=== PATIENT | female | born 1935 | race Caucasian/White ===

== ENCOUNTER 2016-12-04 10:45 | Observation (INO) | payer MEDICARE, BC ==
[~2016-12-04] VITALS: Ht 162.6 cm; Wt 76.8 kg
[~2016-12-04 10:45] MED LIST: COLCRYS0.6 MG PO; D3-5050000 UNIT PO; FERROUS SULFAT325 MG PO; FLAGYL250 MG PO; GLUCOPHAGE 500500 MG PO; HYDRALAZINE HCL50 MG PO; HYDROCHLOROTHIA25 MG PO; LIPITOR80 MG PO; LOPERAMIDE2 M1 PO; LOPRESSOR50 MG PO; MAPAP500 M1 PO; MULTI-DAY VITA1 EACH PO; NEURONTIN 100100 MG PO; VITAMIN D2000 UNI1 PO
[2016-12-04 12:09] LABS: HEMOGLOBIN 11.7 gm/dl (12.3-15.3); RED BLOOD COUNT 4.08 M/UL (4.00-5.10); WHITE BLOOD COUNT 6.2 K/UL (4.5-11.0)
[2016-12-05] MEDS ORDERED: TRAMADOL HCL50 MG PO (09:17)
[2016-12-05] MEDS ORDERED: COLCHICINE 0.60.6 MG PO (09:19)
[2016-12-06] MEDS ORDERED: LIPITOR TAB 2020 MG PO (09:40)
[2016-12-06] MEDS ORDERED: ELIQUIS2.5 MG PO (09:40)
[2016-12-06] MEDS ORDERED: ANTIVERT 12.512.5 MG PO (09:40)
[2016-12-06] MEDS ORDERED: BAYER CHEWABLE81 MG PO (09:41)
== END 2016-12-06 12:50 | disposition home or self-care (01) ==
LOC: ER1 10:45 → M/S 23:00 → ZEROF 23:00 → M/S 23:00
PROVIDERS: Emergency Medicine; Psychiatry & Neurology Neurology; ADMIT Internal Medicine
DX: H53.139 Sudden visual loss, unspecified eye (principal); R42 Dizziness and giddiness; I48.0 Paroxysmal atrial fibrillation; E11.22 Type 2 diabetes mellitus with diabetic chronic kidney disease; I13.0 Hypertensive heart and chronic kidney disease with heart failure and stage 1 through stage 4 chronic kidney disease, or unspecified chronic kidney disease; N18.3 Chronic kidney disease, stage 3 (moderate); I50.32 Chronic diastolic (congestive) heart failure; I27.2 Other secondary pulmonary hypertension; Z85.42 Personal history of malignant neoplasm of other parts of uterus; Z85.828 Personal history of other malignant neoplasm of skin; Z87.39 Personal history of other diseases of the musculoskeletal system and connective tissue; Z87.891 Personal history of nicotine dependence; Z88.0 Allergy status to penicillin; Z88.7 Allergy status to serum and vaccine; Z79.01 Long term (current) use of anticoagulants; Z79.82 Long term (current) use of aspirin; Z79.899 Other long term (current) drug therapy; Z90.710 Acquired absence of both cervix and uterus; Z95.0 Presence of cardiac pacemaker; Z98.49 Cataract extraction status, unspecified eye; Z98.890 Other specified postprocedural states
CPT/HCPCS: ECHO; 36415; 70450; 71010; 80048; 80053; 80061; 81001; 82550; 82553; 82803; 82962; 83036; 83874; 84443; 84484; 85025; 87086; 93005; 93306; 93880; 96372; 96374; 96375; 96376; 97110; 97116; 99285; G0378; J1650; J2405; J2550; J7030; J7050